=== PATIENT | male | born 1940 | race Caucasian/White ===

== ENCOUNTER 2021-12-24 19:16 | Inpatient (IN) | payer MEDICARE ==
[~2021-12-24] VITALS: Ht 177.8 cm; Wt 111.6 kg
[~2021-12-24 19:16] MED LIST: LISINOPRIL10 MG PO
[2021-12-24] MEDS ORDERED: Vancomycin IV 1 GM in SODIUM CHLORIDE 0.9% 250ML 250 ML IV SCH (19:45)
[2021-12-24 19:46] LABS: BASOPHILS % 0.3 % (0.0-1.0); HEMATOCRIT 45.8 % (38.2-49.6); HEMOGLOBIN 14.7 g/dL (14.0-18.0); LYMPHOCYTES # (AUTO) 0.7 (1.0-3.2); LYMPHOCYTES % 19.1 % (18.0-39.1); MEAN CORPUSCULAR HEMOGLOBIN 28.5 pg (28-32); MEAN CORPUSCULAR HGB CONC 32.1 g/dL (31-35); MEAN CORPUSCULAR VOLUME 88.9 fL (81-99); MONOCYTES # (AUTO) 0.8 (0.2-0.8); MONOCYTES % 23.4 % (4.4-11.3); NEUTROPHILS % 56.9 % (38.7-80.0); PLATELET COUNT 83 x10e3/uL (140-360); RED BLOOD COUNT 5.15 x10e6/uL (4.3-5.7); RED CELL DISTRIBUTION WIDTH 14.1 % (11.7-14.4)
[2021-12-24 19:50] LABS: INR 0.91; PARTIAL THROMBOPLASTIN TIME 22.9 seconds (23.8-35.5); PROTHROMBIN TIME 13.1 seconds (11.9-14.5)
[2021-12-24 20:00] LABS: ALBUMIN 3.5 g/dL (3.5-5.0); ALBUMIN/GLOBULIN RATIO 1.1 (0.8-2.0); ANION GAP 16.4 mmol/L (8-16); CALCIUM 8.2 mg/dL (8.4-10.2); CREATININE, SERUM 1.83 mg/dL (0.72-1.25); POTASSIUM 4.4 mmol/L (3.5-5.1)
[2021-12-24] MEDS: SODIUM CHLORIDE 0.9% 1000ML 1,000 ML IV SCH ×2 (20:32→20:46)
[2021-12-24] MEDS ORDERED: PIPERACILLIN/TAZOBACTAM 3.375 GM VIAL ONE (20:43)
[2021-12-24 20:57] LABS: STREPTOCOCCUS GRP A ANTIGEN NEGATIVE (NEGATIVE)
[2021-12-24] MEDS ORDERED: ONDANSETRON HCL INJ 2MG/ML 2ML 2 MG/ML VIAL IV PRN (22:00)
[2021-12-24 23:04] LABS: CLARITY,URINE TURBID (CLEAR); COLOR,URINE RED (YELLOW); KETONES,URINE NEGATIVE (NEGATIVE); LEUKOCYTE ESTERASE ,URINE NEGATIVE (NEGATIVE); NITRITE,URINE NEGATIVE (NEGATIVE); PROTEIN,URINE DIPSTICK >=300 (NEGATIVE); URINE UROBILINOGEN 0.2 mg/dL (0.2 - 1)
[2021-12-24 23:08] LABS: BACTERIA,URINE FEW /HPF; EPITHELIAL CELLS,URINE FEW /LPF; RBC,URINE >50 /HPF (0-5); WBC,URINE (MAN) 0-5 /HPF (0-5)
[2021-12-25] MEDS ORDERED: ACETAMINOPHEN 325 MG TAB PO PRN
[2021-12-25] MEDS: SODIUM CHLORIDE 0.9% 1000ML 1,000 ML IV SCH ×2 (01:21→12:20)
[2021-12-25 08:17] LABS: BASOPHILS % 0.3 % (0.0-1.0); HEMATOCRIT 43.7 % (38.2-49.6); HEMOGLOBIN 14.4 g/dL (14.0-18.0); LYMPHOCYTES % 29.6 % (18.0-39.1); MEAN CORPUSCULAR VOLUME 87.9 fL (81-99); MONOCYTES # (AUTO) 0.7 (0.2-0.8); MONOCYTES % 20.4 % (4.4-11.3); NEUTROPHILS # (AUTO) 1.7 (2.1-6.9); NEUTROPHILS % 49.4 % (38.7-80.0); PLATELET COUNT 70 x10e3/uL (140-360); RED BLOOD COUNT 4.97 x10e6/uL (4.3-5.7); RED CELL DISTRIBUTION WIDTH 14.1 % (11.7-14.4)
[2021-12-25 09:03] LABS: ALBUMIN 3.2 g/dL (3.5-5.0); ALBUMIN/GLOBULIN RATIO 1.1 (0.8-2.0); ANION GAP 13.9 mmol/L (8-16); CALCIUM 7.4 mg/dL (8.4-10.2); CREATININE, SERUM 1.45 mg/dL (0.72-1.25); POTASSIUM 3.9 mmol/L (3.5-5.1)
[2021-12-25] MEDS: NIRMATRELVIR/RITONAVIR 1 EACH TABLET PO SCH ×2 (12:20→22:32)
[2021-12-25 16:44] VITALS: BP 106/52
[2021-12-25 16:47] VITALS: BP 106/52
[2021-12-25 16:53] VITALS: BP 106/52
[2021-12-25 20:00] VITALS: BP 107/64
[2021-12-25] MEDS: HEPARIN SOD (PORCINE) 5,000 UNIT/ML VIAL SC SCH (21:00)
[2021-12-25 23:55] VITALS: BP_SYST 107; BP_SYST 120; BP_DIAS 64; BP_DIAS 66
[2021-12-26 04:11] VITALS: BP 147/94
[2021-12-26] MEDS: SODIUM CHLORIDE 0.9% 1000ML 1,000 ML IV SCH (07:22)
[2021-12-26 07:44] LABS: BASOPHILS % 0.3 % (0.0-1.0); EOSINOPHILS % 0.3 % (0.0-6.0); HEMATOCRIT 44.7 % (38.2-49.6); HEMOGLOBIN 14.4 g/dL (14.0-18.0); LYMPHOCYTES # (AUTO) 1.6 (1.0-3.2); LYMPHOCYTES % 51.3 % (18.0-39.1); MEAN CORPUSCULAR HEMOGLOBIN 28.5 pg (28-32); MEAN CORPUSCULAR HGB CONC 32.2 g/dL (31-35); MEAN CORPUSCULAR VOLUME 88.3 fL (81-99); MONOCYTES # (AUTO) 0.5 (0.2-0.8); NEUTROPHILS # (AUTO) 1.1 (2.1-6.9); NEUTROPHILS % 33.1 % (38.7-80.0); PLATELET COUNT 71 x10e3/uL (140-360); RED BLOOD COUNT 5.06 x10e6/uL (4.3-5.7); RED CELL DISTRIBUTION WIDTH 14.3 % (11.7-14.4)
[2021-12-26 07:53] VITALS: BP 156/76
[2021-12-26 08:11] LABS: ALBUMIN 3.2 g/dL (3.5-5.0); ALBUMIN/GLOBULIN RATIO 1.1 (0.8-2.0); ANION GAP 14.1 mmol/L (8-16); CALCIUM 7.5 mg/dL (8.4-10.2); CREATININE, SERUM 1.5 mg/dL (0.72-1.25); POTASSIUM 4.1 mmol/L (3.5-5.1)
[2021-12-26 08:30] VITALS: BP 153/98
[2021-12-26] MEDS ORDERED: LISINOPRIL 10 MG TAB PO SCH (09:00)
[2021-12-26] MEDS: HEPARIN SOD (PORCINE) 5,000 UNIT/ML VIAL SC SCH (09:26)
[2021-12-26] MEDS: NIRMATRELVIR/RITONAVIR 1 EACH TABLET PO SCH (09:31)
[2021-12-26] MEDS ORDERED: ONDANSETRON HCL 4 MG ORAL DISINTEGRATING TAB PO PRN (14:30)
[2021-12-26] MEDS ORDERED: AZITHROMYCIN 250 MG TAB PO SCH (20:00)
== END 2021-12-26 14:43 | disposition home or self-care (01) | DRG 177 ==
LOC: ER 19:27 → ERHOLD 21:56 → MED/SURG3 12-25 15:37
PROVIDERS: ADMIT Internal Medicine; ATTEND Internal Medicine
PROC: XW0DXF5 Introduction of Other New Technology Therapeutic Substance into Mouth and Pharynx, External Approach, New Technology Group 5 (ICD-10-PCS; principal; 2021-12-25)
DX: U07.1 COVID-19 (principal); J12.82 Pneumonia due to coronavirus disease 2019; N17.9 Acute kidney failure, unspecified; D61.818 Other pancytopenia; F17.200 Nicotine dependence, unspecified, uncomplicated; I12.9 Hypertensive chronic kidney disease with stage 1 through stage 4 chronic kidney disease, or unspecified chronic kidney disease; N18.30 Chronic kidney disease, stage 3 unspecified; Z88.8 Allergy status to other drugs, medicaments and biological substances; Z85.46 Personal history of malignant neoplasm of prostate; F17.210 Nicotine dependence, cigarettes, uncomplicated
CPT/HCPCS: 36415; 51700; 70450; 71045; 80053; 81001; 83518; 83605; 85025; 85610; 85730; 87040; 87070; 87086; 93005; 93306; 94799; 97139; 99285; J0456; J1644; J2543; J3370; J7030; J7050

== ENCOUNTER 2024-02-04 15:21 | Outpatient (RCR) | payer MEDICARE ==
[~2024-02-04 15:21] MED LIST changes: +MINERAL OIL/PETROLAT/GLYCERI 6OZ BTL ONE; +MUPIROCIN 2% OINT 22 GM TUBE ONE
== END 2024-02-05 ==
LOC: WCC 15:21
PROVIDERS: ATTEND Nurse Practitioner Family
DX: I87.311 Chronic venous hypertension (idiopathic) with ulcer of right lower extremity (principal); I87.312 Chronic venous hypertension (idiopathic) with ulcer of left lower extremity; L97.812 Non-pressure chronic ulcer of other part of right lower leg with fat layer exposed; L97.822 Non-pressure chronic ulcer of other part of left lower leg with fat layer exposed; S90.811A Abrasion, right foot, initial encounter; S80.821A Blister (nonthermal), right lower leg, initial encounter; R60.0 Localized edema

== ENCOUNTER → 2024-02-04 | Outpatient (REF) | payer MEDICARE | LOC: CARD 10:00 | PROVIDERS: ATTEND Nurse Practitioner Family | DX: Z01.818 Encounter for other preprocedural examination (principal); I87.311 Chronic venous hypertension (idiopathic) with ulcer of right lower extremity; I87.312 Chronic venous hypertension (idiopathic) with ulcer of left lower extremity; L97.812 Non-pressure chronic ulcer of other part of right lower leg with fat layer exposed; L97.822 Non-pressure chronic ulcer of other part of left lower leg with fat layer exposed | CPT/HCPCS: 93925 ==

== ENCOUNTER 2024-02-23 12:47 | Outpatient (RCR) | payer MEDICARE ==
[2024-02-23] MEDS ORDERED: MINERAL OIL/PETROLAT/GLYCERI 6OZ BTL ONE (15:31)
== END 2024-03-06 ==
LOC: WCC 12:47
PROVIDERS: ATTEND Nurse Practitioner Family
DX: I87.311 Chronic venous hypertension (idiopathic) with ulcer of right lower extremity (principal); I87.312 Chronic venous hypertension (idiopathic) with ulcer of left lower extremity; L97.812 Non-pressure chronic ulcer of other part of right lower leg with fat layer exposed; L97.822 Non-pressure chronic ulcer of other part of left lower leg with fat layer exposed; S90.811A Abrasion, right foot, initial encounter; R60.0 Localized edema

== ENCOUNTER 2024-03-08 12:11 | Outpatient (RCR) | payer MEDICARE ==
[~2024-03-08 12:11] MED LIST changes: -MUPIROCIN 2% OINT 22 GM TUBE ONE
== END 2024-04-06 ==
LOC: WCC 12:11
PROVIDERS: ATTEND Nurse Practitioner Family
DX: I87.311 Chronic venous hypertension (idiopathic) with ulcer of right lower extremity (principal); L97.812 Non-pressure chronic ulcer of other part of right lower leg with fat layer exposed; S90.811A Abrasion, right foot, initial encounter; R60.0 Localized edema